=== PATIENT | male | born 1985 | race Caucasian/White ===

== ENCOUNTER 2019-04-14 06:03 | Outpatient (CLI) | payer OTHER ==
--- NOTE | 2019-04-14 16:02 | Ultrasound Report ---
Reason: UPPER ABDOMINAL PAIN Procedure Date: 04/14/2019 Accession Number: [id number] / [id number] Procedure: US - Abdomen Complete CPT Code: Final Report FULL RESULT: EXAM: Abdomen Complete DATE: 04/14/2019 6:54 AM CLINICAL HISTORY: UPPER ABDOMINAL PAIN COMPARISON: None. TECHNIQUE: Real-time scanning was performed with static images obtained. FINDINGS: Liver: Echogenic consistent with fatty infiltration. A simple cyst noted in the left hepatic lobe measuring 1.3 cm. 15 cm. Main portal vein flow: Hepatopetal. Gallbladder: Normal. No stones, wall thickening, or sonographic Abbott's sign. Biliary System: Common bile duct measures 3.0 mm. No intrahepatic or extrahepatic ductal dilatation. Pancreas: Visualized portion is unremarkable. Kidneys: Right: 12 cm longitudinally. Septated cyst in the medial midpole measuring 1.5 x 1.4 x 1.8 cm No contour-deforming solid mass, stones, or hydronephrosis. Left: 12 cm longitudinally. Normal. No contour-deforming mass, stones, or hydronephrosis. Spleen: 10 cm. Normal in size and echotexture. Aorta and Inferior Vena Cava: Unremarkable. IMPRESSION: 1. Fatty liver. Normal gallbladder. 2. Incidental simple hepatic cyst measuring 1.3 cm. 3. Incidental septated right renal cyst measuring 1.8 cm. [facility]
== END 2019-04-14 06:04 | disposition home or self-care (01) ==
LOC: DI 06:03
PROVIDERS: ATTEND Naturopath
DX: K76.0 Fatty (change of) liver, not elsewhere classified (principal); R10.10 Upper abdominal pain, unspecified
CPT/HCPCS: 76700